=== PATIENT | male | born 1940 | race Caucasian/White ===

== ENCOUNTER 2016-02-21 07:10 | Day surgery (SDC) | payer MEDICARE, BC ==
[2016-02-15 11:47] VITALS: BMI 37.4
[~2016-02-21 07:10] MED LIST: LACTATED RINGERS 1,000 ML IV SCH
[2016-02-21 07:51] VITALS: TEMP 97
[2016-02-21 08:03] LABS: Glucose,Whole Blood 97 mg/dL (75-99)
[2016-02-21] MEDS ORDERED: PROPOFOL 10 MG/ML 20 ML VIAL IV ONE (08:44)
[2016-02-21] MEDS ORDERED: LIDOCAINE 1% INJ 10MG/ML (20 ML MDV) ONE (08:44)
--- NOTE | 2016-02-21 09:17 | P.PCN ---
Date of Procedure: 02/21/16 Preoperative Diagnosis: Constipation Postoperative Diagnosis: Tortuous sigmoid colon, polyp or right colon removed and retrieved, 2 polyps rectum removed and retrieved, internal hemorrhoids Procedure(s) Performed: Colonoscopy Implants: Anesthesia: MAC Surgeon: Michelle Lewis Estimated Blood Loss (ml): 0 IV fluids (ml): 400 Pathology: other (Polyp 3, one right colon, to rectal area) Condition: stable Disposition: PACU Indications for Procedure: Constipation Operative Findings: Polyp right colon, 2 polyps rectal area, with some probable hyperplastic other changes in the rectal area, internal hemorrhoids, tortuous sigmoid colon Description of Procedure: Patient was taken to the endoscopy suite and following sedation rectal exam was performed. Patient was noted to have good sphincter tone no masses. Colonoscope was passed through the anus into the rectum. Through the sigmoid colon up to the splenic flexure. Through the transverse colon hepatic flexure right colon down to the area of the cecum. Approximately 8 minutes were taken to withdraw the scope from the cecum to the rectum. No lesions of concern were noted in the cecum. Small polyp was noted in the right colon which was removed with snare polypectomy and retrieved. No other lesions were seen in the right colon. No lesions of concern were seen in the transverse colon or left colon. The sigmoid colon was tortuous and redundant but no lesions of concern were identified. In the area of the rectum 2 polypoid lesions were identified these were removed with snare polypectomy and retrieved. Additional areas which appeared to be hyperplastic were identified and it was felt that these were consistent with those polyps which had been removed and that we would await pathology on the polyps removed. If these are adenomatous would most likely repeat scope in year remove additional tissue changes in the rectum, if these are hyperplastic we'll most likely repeat scope in 2-3 years. Again this is also depending on the pathology for the polyp in the right colon. Impression/plan: 1. Polyp right colon 2. 2 polyps as rectal area with some probable hyperplastic changes residual 3. Internal hemorrhoids Plan: 1. Await results of pathology 2. Conservative management of hemorrhoids 3. If the polyps in the rectum in the right colon are adenomatous would most likely repeat scope in 1-2 years,
--- NOTE | 2016-02-21 09:18 | P.DS ---
Providers Attending physician: Michelle Lewis Primary care physician: Rc Mojica Plan - Discharge Summary Discharge Medication List Aspirin 325 mg PO DAILY 07/26/15 [History] Finasteride [Proscar] 5 mg PO DAILY 07/26/15 [History] Furosemide [Lasix] 20 mg PO DAILY 07/26/15 [History] Isosorbide Mononitrate [Isosorbide Mononitrate ER] 30 mg PO DAILY 07/26/15 [ History] Lisinopril 40 mg PO DAILY 07/26/15 [History] Metoprolol Tartrate [Lopressor] 50 mg PO BID 07/26/15 [History] Pravastatin Sodium [Pravachol] 40 mg PO HS 07/26/15 [History] Trospium Chloride [Sanctura] 20 mg PO DAILY 07/26/15 [History] amLODIPine BESYLATE [Norvasc] 10 mg PO DAILY 07/26/15 [History] metFORMIN HCL [Glucophage] 500 mg PO BID 07/26/15 [History] Docusate [Colace] 100 mg PO DAILY 30 Days 07/30/15 [Rx] Ascorbic Acid [Vitamin C] 1 tab PO DAILY 02/15/16 [History] Magnesium Hydroxide [Milk of Magnesia] 400 mg PO DAILY PRN 02/15/16 [History] Meloxicam [Mobic] 7.5 mg PO DAILY 02/15/16 [History] Follow up Appointment(s)/Referral(s): Michelle Lewis MD [STAFF PHYSICIAN] - 1 Week Activity/Diet/Wound Care/Special Instructions: Conservative management of hemorrhoids Discharge Disposition: HOME SELF-CARE
[2016-02-21 09:46] VITALS: BP 127/66; PULSE 60; RESP 20
== END 2016-02-21 10:03 | disposition home or self-care (01) ==
LOC: ORWHC2ENDO 07:10
PROVIDERS: ATTEND Surgery
DX: D12.2 Benign neoplasm of ascending colon (principal); K62.1 Rectal polyp; Q43.8 Other specified congenital malformations of intestine; K64.8 Other hemorrhoids; I25.10 Atherosclerotic heart disease of native coronary artery without angina pectoris; I10 Essential (primary) hypertension; I25.2 Old myocardial infarction; E78.5 Hyperlipidemia, unspecified; Z95.5 Presence of coronary angioplasty implant and graft; G47.33 Obstructive sleep apnea (adult) (pediatric); Z99.89 Dependence on other enabling machines and devices; Z87.891 Personal history of nicotine dependence; N40.0 Benign prostatic hyperplasia without lower urinary tract symptoms; Z79.84 Long term (current) use of oral hypoglycemic drugs; Z79.82 Long term (current) use of aspirin; Z79.899 Other long term (current) drug therapy
CPT/HCPCS: 88305; 45385; J2001; J2704; 99153

== ENCOUNTER → 2016-08-03 | Outpatient (CLI) | payer MEDICARE, BC ==
--- NOTE | 2016-08-08 11:27 | P.ARTDOP ---
Arterial Doppler LOWER EXTREMITY ARTERIAL DOPPLER: DATE OF SERVICE: 08/03/2016 Reason for study: Left leg pain. Doppler waveforms: Multiphasic bilaterally throughout. Pulse volume recording: Normal configuration throughout. Pressure gradients: None. Ankle-brachial indices: Greater than 1 bilaterally. Toe pressures: 122 on the right, [] on the left Impression: Normal study.
== END | disposition home or self-care (01) ==
LOC: RADUSWWP 14:08
PROVIDERS: ATTEND Podiatrist
DX: M79.605 Pain in left leg (principal); E13.621 Other specified diabetes mellitus with foot ulcer
CPT/HCPCS: 93923

== ENCOUNTER 2021-07-28 05:40 | Day surgery (SDC) | payer MEDICARE, BC ==
[2021-07-28] MEDS ORDERED: SODIUM CHLORIDE 0.9% 1,000 ML IV SCH ×2 (05:57→07:45)
[2021-07-28] MEDS ORDERED: APIXABAN 5 MG TAB PO STA (06:21)
[2021-07-28 06:44] LABS: Glucose,Whole Blood 102 mg/dL (75-99)
[2021-07-28 06:49] VITALS: RESP 16; TEMP 97.7
[2021-07-28 07:05] LABS: African American GFR (CKD) >90 (>60 ml/min/1.73 sqM); Anion Gap 11 mmol/L; Blood Urea Nitrogen 19 mg/dL (9-20); Calcium 8.9 mg/dL (8.4-10.2); Carbon Dioxide 23 mmol/L (22-30); Chloride 108 mmol/L (98-107); Glucose 109 mg/dL (74-99); Non-African American GFR(CKD) 81 (>60 ml/min/1.73 sqM); Potassium 3.6 mmol/L (3.5-5.1); Sodium 142 mmol/L (137-145)
[2021-07-28] MEDS ORDERED: LIDOCAINE 2% INJ 20 MG/ML (2 ML VIAL) ONE (07:12)
[2021-07-28] MEDS ORDERED: PROPOFOL 10 MG/ML 20 ML VIAL IV ONE (07:12)
[2021-07-28] MEDS ORDERED: BENZOCAINE SPRAY 1 CAN TOPICAL ONE ×2 (07:16→07:18)
[2021-07-28] MEDS ORDERED: MAGNESIUM HYDROXIDE 2,400 MG/10 ML CUP PO PRN (07:33)
--- NOTE | 2021-07-28 07:39 | P.PCN ---
Date of Procedure: 07/28/21 Description of Procedure: Indication: Evaluation of left atrial appendage Procedure Description: After explaining the procedure to the patient, it's risk and complications, blood pressure, heart rate and O2 saturation were monitored. The throat was sprayed with Cetacaine. Patient received sedation per anesthesia department. The probe was introduced into the esophagus without difficulty. Images were obtained. Following that, the probe was removed. There was no immediate complication. Findings: Left atria size is moderately dilated, left atrial appendage appears to be normal. Left ventricular size is normal. Ejection fraction is 50-55%. The aortic valve is fibrocalcific changes of the aortic cusps with preserved opening. Mitral annulus calcification was noted. The tricuspid valve is normal. Descending thoracic aorta revealed mild atherosclerotic changes. No pericardial effusion was noted. Contrast bubble study revealed no evidence of shunting across the intra-atrial septum. Doppler: Pulse wave and color Doppler were obtained and revealed mild aortic with [id number] mitral and moderate tricuspid regurgitation. The right ventricle systolic pressure is estimated at less than 35 mmHg. There was no evidence of shunting across the intra-atrial septum. Conclusion: 1. Dilated left atrium with normal appearance of the left atrial appendage 2. Mildly impaired left ventricle systolic function 3. [id number] mitral was moderate tricuspid regurgitation 4. Mild aortic regurgitation 5. Mild atherosclerotic changes of the descending thoracic aorta.
--- NOTE | 2021-07-28 07:43 | P.PCN ---
Date of Procedure: 07/28/21 Description of Procedure: Cardioversion: Indication atrial fibrillation Procedure after explaining the procedure to the patient as well is the risks and the complications and after obtaining transesophageal echocardiogram and sedated state per Anesthesia department a synchronized biphasic 150, 200, 200 J c ardioversion were performed. There was no immediate complications. It was unsuccessful in restoring sinus mechanism.
[2021-07-28] MEDS ORDERED: NON FORMULARY DRUG (Lisinopril [Lisinopril] 40 MG Tablet) PO SCH (09:00)
[2021-07-28] MEDS ORDERED: ISOSORBIDE MONONITRATE ER 30 MG TAB.ER.24H PO SCH (09:00)
[2021-07-28] MEDS ORDERED: APIXABAN 5 MG TAB PO SCH (09:00)
[2021-07-28] MEDS ORDERED: metFORMIN 500 MG TAB PO SCH (09:00)
[2021-07-28] MEDS ORDERED: FUROSEMIDE 20 MG TAB PO SCH (09:00)
[2021-07-28] MEDS ORDERED: amLODIPine 10 MG TAB PO SCH (09:00)
[2021-07-28] MEDS ORDERED: FINASTERIDE 5 MG TAB PO SCH (09:00)
[2021-07-28] MEDS ORDERED: TROSPIUM CHLORIDE 20 MG TABLET PO SCH (09:00)
[2021-07-28 09:38] VITALS: BP 159/70; PULSE 47
[2021-07-28] MEDS ORDERED: PRAVASTATIN SODIUM 80 MG TAB PO SCH (21:00)
[2021-07-28] MEDS ORDERED: POTASSIUM CHLORIDE ER 20 MEQ TAB.ER PO SCH (21:00)
== END 2021-07-28 09:05 | disposition home or self-care (01) ==
LOC: CATHCVL 05:40
PROVIDERS: ATTEND Internal Medicine Interventional Cardiology
DX: I48.91 Unspecified atrial fibrillation (principal); I70.0 Atherosclerosis of aorta; I08.1 Rheumatic disorders of both mitral and tricuspid valves; Z20.822 Contact with and (suspected) exposure to COVID-19
CPT/HCPCS: 93312; 93320; 93325; 92960; 80048; 87635; J2704; J2001

== ENCOUNTER → 2021-08-08 | Outpatient (CLI) | payer OTHER | LOC: CPPFTMAIN 13:48 | DX: R06.00 Dyspnea, unspecified (principal); Z88.1 Allergy status to other antibiotic agents; Z87.891 Personal history of nicotine dependence | CPT/HCPCS: 94060; 94726; 94729 ==

== ENCOUNTER → 2023-02-21 | Outpatient (CLI) | payer MEDICARE, BC ==
--- NOTE | 2023-02-21 15:46 | P.PN ---
Subjective DATE: 02/21/2023 FOLLOW UP VISIT. Patient with obstructive sleep apnea hypopnea syndrome return to sleep center for follow-up visit. Information from previous visit have been reviewed. This is first visit after patient received new CPAP unit Patient is using PAP equipment every night for the whole night, getting PAP supplies in time. The patient does not have significant problems with the mask, PAP unit and humidification. [place] sleepiness scale is 1, which is normal. I checked information from PAP unit. PAP unit pressure 5-13, average 11.2 cm H2O. Usage is 100 % for more then 4 hours, average 8.25 hours per night. Leak is 22.4 l/m, which is in acceptable range. Apnea Hypopnea Index is increased to 9.6 which include central apneas 3.9 and obstructive lung 0.4. MEDICATIONS:1. Amlodipine 10 mg once a day 2. Metformin 500 mg once a day 3. Lisinopril 40 mg once a day 4. Pravastatin 40 mg once a day 5. Eliquis 5 mg twice a day 6. Isosorbide 30 mg once a day During physical exam: GENERAL: A pleasant patient without any distress. VITAL SIGNS: BP 159/74, HR 46, RR 16, weight 207.6, temperature 97.7, oxygen saturation at room air 96 % . HEENT: PERRLA, EOMI.low position of soft palate, Mallapati[] . NECK: Supple. No JVD. LUNGS: Clear to percussion and to auscultation. Good air exchange. No wheezing or rhonchi. HEART: S1, S2 irregular. ABDOMEN: Soft and nontender.[] EXTREMITIES: No clubbing or cyanosis. STAND UP FORKLIFT OPERATOR: Awake, alert, and oriented x3. No focal deficit. Impressions: 1. Obstructive sleep apnea-hypopnea syndrome. Patient demonstrated great compliance with treatment, benefiting from treatment. Apnea-hypopnea index slightly increased with presence of some central apneas. 2. Hypertension. 3. Coronary artery disease, status post OR and stent insertion. 4. History of cardiac arrhythmia. 5. Status post cholecystectomy. 6. Status post surgical treatment for kidney stones. I changed ramp starting pressure from 4 to 5 cm of water and change range of the pressure from 5-14 cm of water. Plan: 1. Continue using PAP equipment every night for the whole night. 2. To change air filter at least 1-2 times per month. 3. PAP unit should stay lower then position of the head. 4. Advised patient to remove all remaining water from humidifier canister daily and make it dry after each usage. Refill canister with fresh distilled water before each usage. 5. Sleep hygiene with regular time in bed for at least 8 hours. 6. Precautions related to driving. No driving if feel any sleepiness. 7. I will maintain prescription for PAP supplies including mask, tube, filters. 8. Follow up visit in 6 months or earlier if patient has any problems. 9. Watching weight. Thank you very much for allowing me to participate in the management of your patient. Mahesh Beck MD, PhD, FAASM. Diplomat of [place] [employer], Sleep Medicine Board by [place] [employer] [facility] [place]
== END ==
LOC: 3 N SLEEP 14:24
PROVIDERS: ATTEND Internal Medicine
DX: G47.33 Obstructive sleep apnea (adult) (pediatric) (principal); I10 Essential (primary) hypertension; I25.10 Atherosclerotic heart disease of native coronary artery without angina pectoris; I25.2 Old myocardial infarction; I49.9 Cardiac arrhythmia, unspecified; Z90.49 Acquired absence of other specified parts of digestive tract; Z87.442 Personal history of urinary calculi; Z99.89 Dependence on other enabling machines and devices; Z95.5 Presence of coronary angioplasty implant and graft; Z88.0 Allergy status to penicillin; Z88.1 Allergy status to other antibiotic agents; Z79.84 Long term (current) use of oral hypoglycemic drugs; Z79.899 Other long term (current) drug therapy; Z87.891 Personal history of nicotine dependence
CPT/HCPCS: 99212